=== PATIENT | male | born 1965 | race American Indian/Alaskan Native ===

== ENCOUNTER 2016-12-22 13:04 | Emergency (ER) | payer OTHER ==
--- NOTE | 2016-12-22 19:35 | Emergency Department Report ---
ED Lower Extremity HPI - General Chief Complaint: Extremity Injury, Lower Stated Complaint: LT KNEE PAIN Time Seen by Provider: 12/22/16 19:14 Source: patient Mode of arrival: Ambulatory Limitations: No Limitations - History of Present Illness Initial Comments: This is a 51-year-old male nontoxic, well nourished in appearance, no acute signs of distress the [facility] ED complaining of chronic right knee pain. Patient stated had plates and screws that was placed in 1996. Patient has been going through a primary care doctor and received tramadol with no relief of pain. Patient stated Lortab helps with pain. Patient stated he does not been using any over the [id number] just has been taking tramadol. Patient denies any new recent injuries or trauma. Denies numbness, tingling, joint swelling, joint redness, fever, chills, nausea, vomiting, chest pain or shortness of breath. Patient describes pain as aching with level 10 out of 10. Denies any allergies or past medical history. Patient stated he wanted referral to a orthopedic doctor. MD Complaint: knee injury -: Gradual, year(s) Injury: Leg: Left Type of Injury: unknown Severity: moderate Severity scale (0 -10): 10 Improves With: other (Lortab) Worsens With: movement Associated Symptoms: ambulatory. denies: snap/pop sensation, swelling, numbness , tingling, unable to bear weight, able to partially bear weight - Related Data Previous Rx's Medication Instructions Recorded Last Taken Type Naproxen [Naprosyn TAB] 500 mg PO BID #30 tablet 12/22/16 Unknown Rx Allergies Allergy/AdvReac Type Severity Reaction Status Date / Time No Known Allergies Allergy Unverified 12/22/16 14:33 ED Review of Systems ROS: Stated complaint: LT KNEE PAIN Other details as noted in HPI Constitutional: denies: chills, fever Eyes: denies: eye pain, eye discharge, vision change ENT: denies: ear pain, throat pain Respiratory: denies: cough, shortness of breath, wheezing Cardiovascular: denies: chest pain, palpitations Endocrine: no symptoms reported Gastrointestinal: denies: abdominal pain, nausea, diarrhea Genitourinary: denies: urgency, dysuria Musculoskeletal: denies: back pain, joint swelling, arthralgia Skin: denies: rash, lesions Neurological: denies: headache, weakness, paresthesias Psychiatric: denies: anxiety, depression Hematological/Lymphatic: denies: easy bleeding, easy bruising ED Past Medical Hx - Surgical History Additional Surgical History: left knee total replacement, - Social History Smoking Status: Never Smoker Substance Use Type: None - Medications Home Medications: Home Medications Medication Instructions Recorded Confirmed Last Taken Type Naproxen [Naprosyn TAB] 500 mg PO BID #30 tablet 12/22/16 Unknown Rx ED Physical Exam - General Limitations: No Limitations General appearance: alert, in no apparent distress - Head Head exam: Present: atraumatic, normocephalic, normal inspection - Eye Eye exam: Present: normal appearance, PERRL, EOMI. Absent: scleral icterus, conjunctival injection, nystagmus, periorbital swelling, periorbital tenderness Pupils: Present: normal accommodation - ENT ENT exam: Present: normal exam, normal orophraynx, mucous membranes moist, TM's normal bilaterally, normal external ear exam - Neck Neck exam: Present: normal inspection, full ROM. Absent: tenderness, meningismus, lymphadenopathy, thyromegaly - Respiratory Respiratory exam: Present: normal lung sounds bilaterally. Absent: respiratory distress, wheezes, rales, rhonchi, stridor, chest wall tenderness, accessory muscle use, decreased breath sounds, prolonged expiratory - Cardiovascular Cardiovascular Exam: Present: regular rate, normal rhythm, normal heart sounds. Absent: bradycardia, tachycardia, irregular rhythm, systolic murmur, diastolic murmur, rubs, gallop - GI/Abdominal GI/Abdominal exam: Present: soft, normal bowel sounds. Absent: distended, tenderness, guarding, rebound, rigid, diminished bowel sounds - Rectal Rectal exam: Present: deferred - Extremities Exam Extremities exam: Present: normal inspection, full ROM, normal capillary refill. Absent: tenderness, pedal edema, joint swelling, calf tenderness - Expanded Lower Extremity Exam Left Hip exam: Present: normal inspection, full ROM, external rotation, internal rotation, pelvic stability. Absent: tenderness, swelling, abrasion, laceration , ecchymosis, deformity, crepidus, dislocation, erythema, shortening Upper Leg exam: Present: normal inspection, full ROM. Absent: tenderness, swelling, abrasion, laceration, ecchymosis, deformity, crepidus, dislocation, erythema Knee exam: Present: normal inspection, full ROM, full knee extension. Absent: tenderness, swelling, abrasion, laceration, ecchymosis, deformity, crepidus, dislocation, erythema, effusion, pain w/ pronation/supination, posterior draw sign, pain/laxity with valgus, pain/laxity with varus Lower Leg exam: Present: normal inspection, full ROM. Absent: tenderness, swelling, abrasion, laceration, ecchymosis, deformity, crepidus, dislocation, erythema, palpable cord, Brice's sign Ankle exam: Present: normal inspection, full ROM. Absent: tenderness, swelling , abrasion, laceration, ecchymosis, deformity, crepidus, dislocation, erythema, anterior draw sign Foot/Toe exam: Present: normal inspection, full ROM. Absent: tenderness, swelling, abrasion, laceration, ecchymosis, deformity, crepidus, dislocation, erythema, amputation, puncture wound, foreign body, calcaneal tenderness, tenderness at base of 5th metatarsal, nail avulsion, subungual hematoma Neuro vascular tendon exam: Present: no vascular compromise. Absent: pulse deficit, abnormal cap refill, motor deficit, sensory deficit, tendon deficit, extremity cold to touch, pallor, abnormal 2-point discrimination, decreased fine /light touch, foot drop, peroneal nerve deficit, significant pain with passive ROM of distal joint Gait: Positive: observed and normal - Back Exam Back exam: Present: normal inspection, full ROM. Absent: tenderness, CVA tenderness (R), CVA tenderness (L), muscle spasm, paraspinal tenderness, vertebral tenderness, rash noted - Neurological Exam Neurological exam: Present: alert, oriented X3, CN II-XII intact, normal gait, reflexes normal - Psychiatric Psychiatric exam: Present: normal affect, normal mood - Skin Skin exam: Present: warm, dry, intact, normal color. Absent: rash ED Course Vital Signs 12/22/16 14:29 Temperature 98.1 F Pulse Rate 77 Respiratory 18 Rate Blood Pressure 106/81 O2 Sat by Pulse 100 Oximetry - Reevaluation(s) Reevaluation #1: 12/22/16 19:39 Patient is able to speak in full sentences with no signs of distress. ED Lower Extremity MDM - Medical Decision Making ED course; this is a 51-year-old male complaining of chronic left knee pain 1- patient was examined by myself. X-ray has been obtained a left knee. Dictated by radiologist. Patient notified of x-ray findings with her for that was noted by patient 2- due to patient stating following a primary care doctor doctor that he follows for his chronic knee pain patient was referred to follow-up with him in 3-5 days or symptoms change such as numbness, tingling, swelling, joint numbness or cellulitis return to emergency room as was possible. 3- patient received naproxen at the time of discharge 4- At time time of discharge, the patient does not seem toxic or ill in appearance. No acute signs of distress noted. Patient agrees to discharge treatment plan of care. No further questions noted by the patient. Critical care attestation.: If time is entered above; I have spent that time in minutes in the direct care of this critically ill patient, excluding procedure time. ED Disposition Clinical Impression: Chronic pain of left knee Disposition: DC-01 TO HOME OR SELFCARE Is pt being admited?: No Does the pt Need Aspirin: No Condition: Stable Instructions: Knee Pain (ED), Naproxen (By mouth), RICE Therapy (ED) Additional Instructions: follow-up with your in 3-5 days or symptoms change such as numbness, tingling, swelling, joint numbness or cellulitis return to emergency room as was possible. Rest, elevate, ice extremity Prescriptions: Naproxen [Naprosyn TAB] 500 mg PO BID #30 tablet Referrals: PRIMARY MD CRYSTAL [Primary Care Provider] - 3-5 Days CHRIS ROPER MD [Staff Physician] - 3-5 Days PHILIP CORONEL MD [Staff Physician] - 3-5 Days [facility] [Outside] - 3-5 Days [facility] [Outside] - 3-5 Days
[2016-12-22] MEDS ORDERED: TORADOL IM ONE (19:43)
--- NOTE | 2016-12-22 20:11 | XRay Report ---
FINAL REPORT EXAM: XR KNEE 3V LT HISTORY: Knee pain TECHNIQUE: 3 views of left knee. PRIORS: None. FINDINGS: Orthopedic fixation hardware, including compression screw plate fixation device along lateral aspect distal femur spanning ill-defined, sclerotic focus in the posterior distal femoral metaphysis. Additional, transversely oriented screw through anterior aspect of distal femoral condyles also grossly intact. Moderate medial and less pronounced lateral and patellofemoral joint space narrowing, with subchondral sclerosis along the lateral tibial plateau and mild marginal spurring in all 3 joint compartments. No acute fracture or dislocation. Soft tissues grossly unremarkable. IMPRESSION: 1. Postsurgical and degenerative change. 2. Ill-defined, sclerotic convexity along posterior aspect of distal femoral metaphysis may be posttraumatic and/or postsurgical residual, but inflammatory or neoplastic process not completely excluded. Clinical correlation and followup suggested.
[2016-12-22 21:26] VITALS: BP 123/89
== END 2016-12-22 20:20 | disposition home or self-care (01) ==
LOC: ED 13:04
DX: M25.562 Pain in left knee (principal); G89.29 Other chronic pain
CPT/HCPCS: 73562; 99283; J1885

== ENCOUNTER 2017-02-03 12:34 | Emergency (ER) | payer SELFPAY ==
--- NOTE | 2017-02-03 14:22 | Emergency Department Report ---
Chief Complaint: Fall Stated Complaint: KNEE AND SHOULDER PAIN Time Seen by Provider: 02/03/17 14:20 - HPI History of Present Illness: PT c/o L knee and L shoulder pain since fall yesterday. PT states he has hx of L knee pain. - ROS Review of Systems: + L shoulder pain + L knee pain - Exam Physical Exam: pt alert and appropriate in triage PT ambulatory with crutches. MSE screening note: Focused history and physical exam performed. Due to findings the following was ordered: xr ED Disposition for MSE Condition: Stable
--- NOTE | 2017-02-03 15:30 | XRay Report ---
Left knee 3 views: History: Pain status post fall. Findings: Status post internal fixation of fracture distal femur supracondylar region with metallic plate and screws. Stable hardware. Sclerotic mass in the posterior aspect of the distal diaphysis of left femur supracondylar region is more dense and has increased in size compared to previous study. No acute fracture or lytic lesion. No soft tissue calcification. Impression: Increase in sclerosis at the posterior distal left femur. Findings may still be posttraumatic, postsurgical, chronic inflammatory or neoplastic.
--- NOTE | 2017-02-03 15:31 | XRay Report ---
Left shoulder 3 views: History: Pain status post fall. Findings: Mild arthritic changes in the glenohumeral joint and a.c. joint. There is ossification noted at the superior aspect of the acromion probably related to old injury. No definite evidence of acute fracture. Impression: Findings as detailed above.
[2017-02-03] MEDS ORDERED: MOTRIN PO ONE (18:36)
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
[2017-02-03] MEDS ORDERED: NORCO 5/325 PO ONE (19:52)
[2017-02-03 21:07] VITALS: BP 132/78
== END 2017-02-03 21:07 | disposition home or self-care (01) ==
LOC: ED 12:34
DX: M25.562 Pain in left knee (principal); M19.90 Unspecified osteoarthritis, unspecified site; Z87.891 Personal history of nicotine dependence
CPT/HCPCS: 99283

== ENCOUNTER 2020-06-08 16:41 | Emergency (ER) | payer SELFPAY ==
[2020-06-08 16:50] VITALS: BP 117/74
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
== END 2020-06-08 20:14 | disposition home or self-care (01) ==
LOC: ED 16:41
DX: M17.12 Unilateral primary osteoarthritis, left knee (principal); M19.90 Unspecified osteoarthritis, unspecified site; F41.9 Anxiety disorder, unspecified; F32.9 Major depressive disorder, single episode, unspecified; Z87.891 Personal history of nicotine dependence
CPT/HCPCS: 99281